=== PATIENT | male | born 1965 | race Caucasian/White ===

== ENCOUNTER 2020-05-26 20:14 | Inpatient (IN) | payer MEDICARE, MEDICAID ==
[~2020-05-26] VITALS: Ht 175.3 cm; Wt 75.3 kg
[~2020-05-26 20:14] MED LIST: RISP2TAB76 PO
[2020-05-26] MEDS ORDERED: LORazepam 2 MG/ML VIAL IM ONE ×2 (20:45→21:15)
[2020-05-26] MEDS ORDERED: DiphenhydrAMINE HCL 50 MG/ML VIAL IM ONE ×2 (20:45→21:15)
[2020-05-26] MEDS ORDERED: HALOPERIDOL LACTATE 5 MG/ML VIAL IM ONE (20:45)
[2020-05-26 20:57] LABS: BASOPHILS % (AUTO) 0.4 % (0.0-2.0); EOSINOPHILS % (AUTO) 4.8 % (1.0-6.0); HEMATOCRIT 38.3 % (41-53); HEMOGLOBIN 12.6 g/dL (13.5-17.5); LYMPHOCYTES # (AUTO) 2.2 K/uL (1.0-4.8); LYMPHOCYTES % (AUTO) 22.6 % (22.0-44.0); MEAN CORPUSCULAR HEMOGLOBIN 28.9 pg (26.0-34.0); MEAN CORPUSCULAR HGB CONC 32.8 G/dL (31.0-37.0); MEAN CORPUSCULAR VOLUME 88 fL (80-100); MONOCYTES # (AUTO) 0.9 K/uL (0.1-1.0); MONOCYTES % (AUTO) 8.9 % (2.0-9.0); NEUTROPHILS # (AUTO) 6.1 K/uL (1.8-7.7); NEUTROPHILS % (AUTO) 63.3 % (40.0-70.0); PLATELET COUNT (AUTO) 371 K/uL (150-450); RED BLOOD CELL COUNT(AUTO) 4.35 MIL/uL (4.50-5.90); RED CELL DISTRIBUTION WIDTH 14.6 % (11.5-14.5)
[2020-05-26] MEDS ORDERED: RisperiDONE 1 MG TABLET PO ONE (21:00)
[2020-05-26 21:08] LABS: ANION GAP 9 mmol/L (8-16); CALCIUM, TOTAL 9.2 mg/dL (8.8-10.5); CARBON DIOXIDE 26 mmol/L (22-29); CHLORIDE 105 mmol/L (98-107); CREATININE 1.18 mg/dL (0.60-1.30); GLOMERULAR FILTR. RATE CALC > 60 mL/min (>60); GLUCOSE,RANDOM 100 mg/dL (70-110); POTASSIUM 3.8 mmol/L (3.5-5.1); SODIUM SERUM 140 mmol/L (136-145); UREA NITROGEN, BLOOD 22 mg/dL (7-18)
[2020-05-26 21:14] LABS: ALANINE AMINOTRANSFERASE 60 U/L (12-78); ALBUMIN 3.7 g/dL (3.4-5.0); ALKALINE PHOSPHATASE 65 U/L (46-116); ASPARTATE AMINOTRANSFERASE 56 U/L (15-37); BILIRUBIN,TOTAL 0.8 mg/dL (0.1-1.0); TOTAL PROTEIN, SERUM 7.5 g/dL (6.4-8.2)
[2020-05-27] MEDS ORDERED: HALOPERIDOL 5 MG TABLET PO PRN
[2020-05-27] MEDS ORDERED: HALOPERIDOL LACTATE 5 MG/ML VIAL IM ONE (01:15)
[2020-05-27] MEDS ORDERED: LORazepam 2 MG/ML VIAL IM ONE (01:15)
[2020-05-27] MEDS ORDERED: DiphenhydrAMINE HCL 50 MG/ML VIAL IM ONE (01:15)
[2020-05-27] MEDS ORDERED: ALBUTEROL SULFATE HFA 90 MCG/PUFF 8 GM INHALER IH PRN (08:00)
[2020-05-27] MEDS ORDERED: ACETAMINOPHEN 325 MG TABLET PO PRN (08:00)
[2020-05-27] MEDS ORDERED: IBUPROFEN 400 MG TABLET PO PRN (08:00)
[2020-05-27] MEDS ORDERED: GuaiFENesin/D-METHORPHAN [SUGAR-FREE] 200-20MG/10 ML SYRUP UDCUP PO PRN (08:00)
[2020-05-27] MEDS ORDERED: PETROLATUM,WHITE 28 GM JELLY TP PRN (08:00)
[2020-05-27] MEDS ORDERED: LOPERAMIDE HCL 2 MG CAPSULE PO PRN (08:00)
[2020-05-27] MEDS ORDERED: MAGNESIUM HYDROXIDE SUSPENSION 30 ML UDCUP PO PRN (08:00)
[2020-05-27] MEDS ORDERED: NICOTINE 14 MG/24 HOUR PATCH TD PRN (08:00)
[2020-05-27] MEDS ORDERED: ONDANSETRON HCL 4 MG TABLET PO PRN (08:00)
[2020-05-27] MEDS ORDERED: CloNIDine HCL 0.1 MG TABLET PO PRN (08:00)
[2020-05-27] MEDS ORDERED: MAG HYDROX/AL HYDROX/SIMETH ES 30 ML SUSPENSION UDCUP PO PRN (08:00)
[2020-05-27] MEDS ORDERED: DOCUSATE SODIUM 100 MG CAPSULE PO PRN (08:00)
[2020-05-27] MEDS ORDERED: RisperiDONE 2 MG TABLET PO ONE (13:30)
[2020-05-27 16:13] VITALS: BP 85/55
[2020-05-27] MEDS: RisperiDONE 2 MG TABLET PO SCH (22:48)
[2020-05-28 01:14] VITALS: BP 94/69
[2020-05-28 08:01] VITALS: BP 100/48
[2020-05-28] MEDS: RisperiDONE 2 MG TABLET PO SCH ×2 (08:29→20:21)
[2020-05-28 08:46] LABS: CHOL/HDL RATIO 2.8 (4.2-7.3)
[2020-05-28 16:06] VITALS: BP 127/81
[2020-05-28] MEDS: LORazepam 2 MG TABLET PO PRN (16:36)
[2020-05-29 05:22] VITALS: BP 122/72
[2020-05-29] MEDS: RisperiDONE 2 MG TABLET PO SCH ×2 (08:45→20:25)
[2020-05-29 16:10] VITALS: BP 106/62
[2020-05-29] MEDS: ZOLPIDEM TARTRATE 10 MG TABLET PO PRN (20:25)
[2020-05-30 01:59] VITALS: BP 111/72
[2020-05-30] MEDS: LORazepam 2 MG TABLET PO PRN ×2 (02:07→10:53)
[2020-05-30 08:03] VITALS: BP 102/63
[2020-05-30] MEDS: RisperiDONE 2 MG TABLET PO SCH (08:11)
[2020-05-30] MEDS ORDERED: QUEtiapine FUMARATE 100 MG TABLET PO PRN (11:00)
[2020-05-30] MEDS: DIVALPROEX SODIUM 500 MG DR TABLET PO SCH ×2 (12:27→20:07)
[2020-05-30 16:03] VITALS: BP_SYST 102; BP_SYST 108; BP_DIAS 63; BP_DIAS 64
[2020-05-30] MEDS: RisperiDONE 3 MG TABLET PO SCH (20:07)
[2020-05-30] MEDS: ZOLPIDEM TARTRATE 10 MG TABLET PO PRN (21:13)
[2020-05-31 00:58] VITALS: BP 103/67
[2020-05-31] MEDS: LORazepam 2 MG TABLET PO PRN ×2 (03:00→04:49)
[2020-05-31 04:47] VITALS: BP 105/64
[2020-05-31 08:01] VITALS: BP 100/66
[2020-05-31] MEDS: RisperiDONE 3 MG TABLET PO SCH ×2 (08:34→19:48)
[2020-05-31] MEDS: DIVALPROEX SODIUM 500 MG DR TABLET PO SCH ×2 (08:34→19:48)
[2020-05-31 16:46] VITALS: BP 104/64
[2020-06-01 00:29] VITALS: BP 103/62
[2020-06-01] MEDS: RisperiDONE 3 MG TABLET PO SCH ×2 (08:32→20:03)
[2020-06-01] MEDS: DIVALPROEX SODIUM 500 MG DR TABLET PO SCH ×2 (08:32→20:03)
[2020-06-01 08:48] VITALS: BP 100/62
[2020-06-01 16:13] VITALS: BP 101/63
[2020-06-02 02:45] VITALS: BP 123/90
[2020-06-02] MEDS: DIVALPROEX SODIUM 500 MG DR TABLET PO SCH ×2 (07:59→20:24)
[2020-06-02] MEDS: RisperiDONE 3 MG TABLET PO SCH ×2 (07:59→20:24)
[2020-06-02 08:24] VITALS: BP 110/72
[2020-06-02 16:01] VITALS: BP 114/69
[2020-06-02] MEDS ORDERED: MUPIROCIN CALCIUM 2% 15 GM CREAM TP SCH (17:00)
[2020-06-02] MEDS: PRAZOSIN HCL 1 MG CAPSULE PO SCH (20:23)
[2020-06-03 06:52] VITALS: BP 122/64
[2020-06-03 08:03] VITALS: BP 106/70
[2020-06-03] MEDS: DIVALPROEX SODIUM 500 MG DR TABLET PO SCH ×2 (08:11→19:47)
[2020-06-03] MEDS: RisperiDONE 3 MG TABLET PO SCH ×2 (08:11→19:48)
[2020-06-03] MEDS ORDERED: MUPIROCIN CALCIUM 2% 22 GM OINTMENT NASAL SCH (09:00)
[2020-06-03] MEDS: MUPIROCIN CALCIUM 2% 22 GM OINTMENT NASAL SCH ×2 (12:28→17:36)
[2020-06-03 16:00] VITALS: BP 97/62
[2020-06-03 19:40] VITALS: BP 95/54
[2020-06-03] MEDS: PRAZOSIN HCL 1 MG CAPSULE PO SCH (20:27)
[2020-06-04 00:56] VITALS: BP 107/74
[2020-06-04 08:06] VITALS: BP 110/70
[2020-06-04] MEDS: RisperiDONE 3 MG TABLET PO SCH ×2 (08:48→20:05)
[2020-06-04] MEDS: DIVALPROEX SODIUM 500 MG DR TABLET PO SCH ×2 (08:48→20:05)
[2020-06-04] MEDS: MUPIROCIN CALCIUM 2% 22 GM OINTMENT NASAL SCH ×2 (08:49→17:25)
[2020-06-04 17:35] VITALS: BP 105/67
[2020-06-04] MEDS: PRAZOSIN HCL 1 MG CAPSULE PO SCH (20:06)
[2020-06-05 01:10] VITALS: BP 102/81
[2020-06-05 08:01] VITALS: BP 101/61
[2020-06-05] MEDS: RisperiDONE 3 MG TABLET PO SCH ×2 (08:32→20:17)
[2020-06-05] MEDS: MUPIROCIN CALCIUM 2% 22 GM OINTMENT NASAL SCH ×2 (08:32→16:09)
[2020-06-05] MEDS: DIVALPROEX SODIUM 500 MG DR TABLET PO SCH (08:32)
[2020-06-05 16:01] VITALS: BP 113/72
[2020-06-05] MEDS: PRAZOSIN HCL 1 MG CAPSULE PO SCH (20:17)
[2020-06-05] MEDS ORDERED: DIVALPROEX SODIUM 500 MG DR TABLET PO SCH (21:00)
[2020-06-06 00:35] VITALS: BP 116/73
[2020-06-06] MEDS ORDERED: RISP3TAB14 PO (01:03)
[2020-06-06] MEDS ORDERED: PRAZ1 PO (01:03)
[2020-06-06] MEDS ORDERED: DIVA-112 PO ×2 (01:03)
[2020-06-06] MEDS ORDERED: DIVALPROEX SODIUM 500 MG DR TABLET PO SCH (09:00)
== END 2020-06-06 07:00 | disposition home or self-care (01) | DRG 885 ==
LOC: EMS 20:16 → B3A 23:58 → B2S 05-29 22:24
DX: F20.0 Paranoid schizophrenia (principal); R45.851 Suicidal ideations; D64.9 Anemia, unspecified; F10.10 Alcohol abuse, uncomplicated; F12.90 Cannabis use, unspecified, uncomplicated; F15.10 Other stimulant abuse, uncomplicated; F43.10 Post-traumatic stress disorder, unspecified; F64.0 Transsexualism; Z91.19 Patient's noncompliance with other medical treatment and regimen; Z87.891 Personal history of nicotine dependence; Z79.899 Other long term (current) drug therapy; W18.39XA Other fall on same level, initial encounter; Y93.89 Activity, other specified; Y92.89 Other specified places as the place of occurrence of the external cause; Y99.8 Other external cause status
CPT/HCPCS: 87081; 99291; G0480; J1200; J1630; J2060

== ENCOUNTER 2021-04-04 13:01 | Emergency (ER) | payer MEDICARE, OTHER ==
[~2021-04-04] VITALS: Ht 175.3 cm; Wt 81.8 kg
[~2021-04-04 13:01] MED LIST changes: +DIVA-80 PO; -RISP2TAB76 PO; +RISP3TAB35 PO
[2021-04-04 14:01] LABS: BASOPHILS % (AUTO) 0.5 % (0.0-2.0); EOSINOPHILS % (AUTO) 5.7 % (1.0-6.0); HEMATOCRIT 40.6 % (41-53); HEMOGLOBIN 13.4 g/dL (13.5-17.5); LYMPHOCYTES # (AUTO) 1.6 K/uL (1.0-4.8); LYMPHOCYTES % (AUTO) 22.3 % (22.0-44.0); MEAN CORPUSCULAR HEMOGLOBIN 29.2 pg (26.0-34.0); MEAN CORPUSCULAR HGB CONC 33.1 G/dL (31.0-37.0); MEAN CORPUSCULAR VOLUME 88 fL (80-100); MONOCYTES # (AUTO) 0.7 K/uL (0.1-1.0); MONOCYTES % (AUTO) 9.4 % (2.0-9.0); NEUTROPHILS # (AUTO) 4.5 K/uL (1.8-7.7); NEUTROPHILS % (AUTO) 62.1 % (40.0-70.0); PLATELET COUNT (AUTO) 274 K/uL (150-450); RED BLOOD CELL COUNT(AUTO) 4.61 MIL/uL (4.50-5.90); RED CELL DISTRIBUTION WIDTH 14.6 % (11.5-14.5)
[2021-04-04 14:16] LABS: ANION GAP 7 mmol/L (8-16); CARBON DIOXIDE 27 mmol/L (22-29); CHLORIDE 106 mmol/L (98-107); CREATININE 0.81 mg/dL (0.60-1.30); GLOMERULAR FILTR. RATE CALC > 60 mL/min (>60); GLUCOSE,RANDOM 98 mg/dL (70-110); POTASSIUM 3.6 mmol/L (3.5-5.1); SODIUM SERUM 140 mmol/L (136-145); UREA NITROGEN, BLOOD 13 mg/dL (7-18)
[2021-04-04 14:23] LABS: ALANINE AMINOTRANSFERASE 40 U/L (12-78); ALBUMIN 3.8 g/dL (3.4-5.0); ALKALINE PHOSPHATASE 67 U/L (46-116); ASPARTATE AMINOTRANSFERASE 34 U/L (15-37); BILIRUBIN,TOTAL 0.5 mg/dL (0.1-1.0); TOTAL PROTEIN, SERUM 7.1 g/dL (6.4-8.2)
[2021-04-04 14:24] LABS: VALPROIC ACID < 3 mcg/mL (50-100)
[2021-04-04] MEDS ORDERED: QUEtiapine FUMARATE 100 MG TABLET PO ONE (15:00)
[2021-04-04 15:10] VITALS: BP 131/73
[2021-04-04] MEDS ORDERED: RisperiDONE 1 MG TABLET PO ONE (15:15)
== END 2021-04-04 15:27 | disposition home or self-care (01) ==
LOC: EMS 13:07
DX: F25.9 Schizoaffective disorder, unspecified (principal); F31.9 Bipolar disorder, unspecified; F17.210 Nicotine dependence, cigarettes, uncomplicated; F12.90 Cannabis use, unspecified, uncomplicated; F19.90 Other psychoactive substance use, unspecified, uncomplicated; Z88.8 Allergy status to other drugs, medicaments and biological substances; Z76.0 Encounter for issue of repeat prescription; Z59.0 Homelessness
CPT/HCPCS: 36415; 80053; 80164; 85025; 99283; G0480

== ENCOUNTER 2021-05-26 11:58 | Emergency (ER) | payer MEDICARE, OTHER ==
[~2021-05-26] VITALS: Ht 175.3 cm; Wt 68.2 kg
[2021-05-26 12:19] VITALS: BP 135/79
== END 2021-05-26 14:42 | disposition home or self-care (01) ==
LOC: EMS 11:59
DX: L03.116 Cellulitis of left lower limb (principal); F25.9 Schizoaffective disorder, unspecified; F31.9 Bipolar disorder, unspecified; F17.210 Nicotine dependence, cigarettes, uncomplicated; F12.90 Cannabis use, unspecified, uncomplicated; F19.90 Other psychoactive substance use, unspecified, uncomplicated; Z88.8 Allergy status to other drugs, medicaments and biological substances
CPT/HCPCS: 99283